=== PATIENT | male | born 1970 | race Caucasian/White ===

== ENCOUNTER 2021-01-11 06:44 | Outpatient (CLI) | payer OTHER, SELFPAY ==
[2021-01-11 07:18] VITALS: BMI 30.8
--- NOTE | 2021-01-11 07:19 | ECG_ITS ---
[facility] Test Date: 2021-01-11 Pat Name: Norman Newell Department: Room: Gender: Male [employer]: : 1970 Requested By: Austin Schaeffer Order Number: [id number] Jatin MD: Austin Schaeffer M.D. Interpretive Statements NAME OF STUDY: LEXISCAN SESTAMIBI STRESS TEST INDICATION: [Chest Pain] Procedure: At the baseline, the blood pressure was 122/81mmHg with a heart rate of 72 bpm. The electrocardiogram showed normal sinus rhythm, normal axis with normal ST and T's. The Lexiscan was infused over a period of 20 seconds. A total of 0.4 mg of Lexiscan was infused. The stress phase was continued for a total of 5 minutes. Heart rate was at the end of stress phase was 86 bpm and a blood pressure of 114/85 mmHg. The EKG at the peak infusion revealed since normal sinus rhythm with no significant ST-T wave changes. Sestamibi was injected 20 seconds after the Lexiscan infusion. Blood pressure at the end of recovery phase was 127/91mmHg with a heart rate of 85 bpm. Conclusion: 1. Normal EKG response to Lexiscan infusion 2. No Lexiscan induced chest pain or cardiac arrhythmia. 3. Normal blood pressure and heart rate response. 4. Sestamibi/sestamibi perfusion scan pending; see separate report. Electronically Signed On 01-11-2021 15:29:54 CDT by Austin Schaeffer M.D. [id number]
--- NOTE | 2021-01-11 07:20 | NMCV_ITS ---
NM wiht perf SPECT r/s* [id number] Reece Norman Age: 50 Gender: M : 1970 Exam Date: 01/11/2021 08:01 Ordering Phys: Austin Schaeffer M.D ([email or web address]) Technologist: YNES Rodriguez Exam Location: [facility] Indications: CHEST PAIN STRESS TEST [facility] IMAGE PROTOCOL Rest/Stress 1 Lexiscan Day Radiopharmaceutical Dose (mCi) Administration Site Administered by Rest: Tc-99m 10.9 IV YNES Rodriguez Sestamibi Stress:Tc-99m 32.6 IV YNES Seals Sestamibi Rest: 11-Jan-2021 60 Discovery 630 Stress: 11-Jan-2021 30 Discovery 630 0.4mg Lexiscan. Images obtained in supine and prone position. SPECT RESULTS Technical Quality: Excellent Raw Data Analysis: Normal Image Corrections: No attenuation or motion correction applied Summed Stress Score: 6 Summed Rest Score: 0 Summed Difference Score: 6 PERFUSION FINDINGS There is a moderate sized reversible perfusion defect in the inferior wall. This is consistent with ischemia FUNCTIONAL RESULTS (calculated via Gated SPECT) Stress Image LV EF (%): 64 Stress EDV (mL):127 TID: 0.93 Stress ESV (mL):46 FUNCTIONAL FINDINGS: There is normal left ventricular systolic function. IMPRESSIONS 1. Abnormal myocardial perfusion imaging with ischemia of the inferior wall 2. LV systolic function is normal Austin Schaeffer MD (Electronically Signed) Final Date: 11 January 2021 13:47 S
[2021-01-11] MEDS: regadenoson 0.4 Mg/5 ml Syringe IVP (08:40)
[2021-01-11 09:22] VITALS: BP 121/75; PULSE 63
== END 2021-01-11 06:45 | disposition home or self-care (01) ==
LOC: CDL 06:46
PROVIDERS: PCP Family Medicine; Visit Provider Internal Medicine
DX: R07.9 Chest pain, unspecified (principal)
CPT/HCPCS: 78452; 93017; A9500; J2785

== ENCOUNTER → 2021-01-27 10:45 | Outpatient (BNVA) | payer OTHER, SELFPAY | PROVIDERS: Referring Provider Internal Medicine; Visit Provider Internal Medicine | DX: I25.10 Atherosclerotic heart disease of native coronary artery without angina pectoris (principal); Z01.818 Encounter for other preprocedural examination; R07.9 Chest pain, unspecified; R94.39 Abnormal result of other cardiovascular function study; Z20.822 Contact with and (suspected) exposure to COVID-19 | CPT/HCPCS: 80048; 85025; 85610; 87635 ==

== ENCOUNTER 2021-02-01 06:47 | Day surgery (SDC) | payer OTHER, SELFPAY ==
[2021-02-01] VITALS (32 sets, daily range): BP systolic 102–155; BP diastolic 65–98; PULSE 64–98; RESP 12–22; TEMP 37.1; O2SAT 94–100; BMI 33.2
--- NOTE | 2021-02-01 07:30 | XACV_ITS ---
Exam Room: 1 Ht: 175 cm Wt: 102 kg BSA: 2.26 m2 Gender: Male : 1970 Any Known Allergies: No known allergies Exam Priority: Routine Procedure(s): Procedure Description: Diagnostic procedure Procedure Description: Left Heart Catheterization Procedure Description: Left ventriculography Procedure Description: Miscellaneous Procedure Description: Perclose Procedure Description: Coronary Angiography Diagnostic Cath Status: Elective Diagnostic Findings * Left Anterior Descending has mild luminal irregularities. LAD supplies collaterals to RCA.. * Circumflex has minor luminal irregularities. Circumflex supplies collaterals to PLV branch.. * Proximal Right Coronary Artery: total occlusion, DIANE: 0 flow. 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 * INDICATION: Chest pain/ abnormal stress test. * Left Main has no disease. * Coronary angiography shows right dominance. Conclusions 1. There is total occlusion coronary artery disease with one vessel disease. 2. Normal left ventricular systolic function. Ejection fraction of 50%. Recommendations * Aggressive risk factor modification. * Outpatient follow-up with cardiology in 4 weeks. Interventional RX Recommendation: medical therapy and/or counseling Diagnostic RX Recommendation: medical therapy and/or counseling Ventriculography Ejection Fraction: 50.0 % Pressures Phase:Rest AO : 139 / 64 ( 71 ) @ 8:29:00 AM 158 / 66 ( 76 ) @ 8:31:00 AM 98 / 72 ( 84 ) @ 8:35:00 AM 110 / 11 ( 42 ) @ 8:41:00 AM LV : 116 / -4 / 12 @ 8:40:00 AM 119 / 0 / 14 @ 8:41:00 AM Clinical Evaluation EBL: 5mL-10mL Procedural Details Procedure Consent Obtained. Current Diagnosis : Chest Pain. Pre-Procedure Time Out. Identified patient by full name and date of as verbalized by the patient/guarantor. Does the consent match the physician's order: Yes. Accurate & Complete Informed Consent: Yes. Inpatient/Outpatient History & Physical on Chart: Yes. If H&P is completed, is and addenduem needed: No; If yes, is the addendum complete: N/A. Visualize and Verify Site with Patient/Guarantor: N/A. Relevant Radiology Images available: Yes. Pre-op teaching completed and patient verbalized understanding. The risks, benefits, and alternatives of sedation and/or procedure were discussed by physician. The patient agrees to continue. Procedure started. [facility] Clinical Fraility Score: 3: Managing Well. 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 Chest Pain Symptom Assessment: Typical Angina Symptoms. Correct patient, site and procedure confirmed by cath team. Current diagnosis: Chest Pain. PERRLA. 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 Lungs clear x 5 lobes. IV Site on Arrival: 18 gauge in the left anticubital. IV Fluids: 0.9% NaCl at KVO. 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 Pre Procedural Pulses: bilateral dorsalis pedis was 1+. Pre Procedural Pulses: bilateral posterior tibial was 2+. Pre Procedural Pulses: bilateral radial was 3+. Oxygen started at 2liters/min via nasal canula. bilateral groins was prepped with chloroprep then draped in the usual sterile fashion. Physician notified. Baseline sample Acquired. HR: 0 BPM. Physician arrived. Carlos Eduardo Santos scrubbing and Mary Perkins circulating. Physician scrubbed in. Immediate Pre-Procedure Time Out. Correct Patient: Yes; Correct Procedure: Yes; Correct Site: Yes; Correct Patient Position: Yes; Correct Supplies: Yes; Dried Flammable Prep: Yes; Blood Products Available: N/A;. Lidocaine 1% infiltrated to the right groin. Arterial access obtained with micropuncture set. A 5 [place] JL4 catheter in over wire. Multiple views taken of left coronary artery. Catheter removed over the standard wire. A 5 [place] JR4 catheter in over wire. Multiple views taken of right coronary artery. Physician review of cine films. Catheter removed over the standard wire. A 5 [place] Angled Pig catheter in over wire. EDP Sample taken: LV 116/-5,12; HR: 65 BPM; SpO2: 99%. LV gram performed in URBINA @ 10 mL/second for a total of 30 mL. EDP Sample taken: LV 119/0,14; HR: 67 BPM; SpO2: 99%. Pullback taken: LV Off; AO Off; Mean: , Peak to Peak: , SEP: ; HR: 67 BPM; SpO2: 99%. Catheter removed over the standard wire. A Right femoral angiogram was performed to determine safe placement of closure device. Perclose placed without complications. No signs or symptoms of hematoma noted. Sterile dressing applied per usual sterile fashion. A Perclose (Quickshift) was successful obtaining hemostatsis at the Right Femoral artery insertion site. Post Procedure: Pulses reassessed and unchanged. PERRLA. 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 No VTE prophylaxis required. Medication's Wasted: Heparin = 1000 units. Medication's Wasted: Other = Fentanyl 50 mg. Medication's Wasted: Lidocaine 1% = 10 mL. Total IV fluids: 39 mL. Contrast type used: Omnipaque 300 mgI/mL, 500 mL bottle. Complications: None. Estimated blood loss: 5mL-10mL. Procedure completed. Patient transferred by bed to 1st floor. Vital chart was stopped. Access Site Site: Right Femoral artery Sheath Size: 6 Fr Hemostasis Method: Perclose (Quickshift) Hemostasis Success: Successful Procedure Medications Start: 9:20 AM Stop: 9:20 AM Medication: Versed Amount: 1 mg Route: I.V. Start: 9:20 AM Stop: 9:20 AM Medication: Fentanyl Amount: 50 mcg Route: I.V. Start: 9:24 AM Stop: 9:24 AM Medication: Versed Amount: 1 mg Route: I.V. I, the attending physician, have reviewed and verified all procedure medications. Yes, all medications given per verbal order History/Risk Factors Hypertension: Yes Dyslipidemia: No Peripheral Arterial Disease (PAD): No Myocardial Infarction (NE): No Obesity: No Renal Disease: No Tobacco Use: Current/Recent(w/in 1 year) Prior Interventions PCI: No CABG: No Valve Surgery: No Report Signatures Finalized by Austin Schaeffer MD on 02/15/2021 06:29 PM
[2021-02-01] MEDS: diphenhydrAMINE 50 mg Capsule PO (08:25)
--- NOTE | 2021-02-01 08:46 | W.PM.OPSFHP ---
Same Day Surgery H&P Indication for Procedure/HPI DATE OF PROCEDURE: February 01, 2021 CHIEF COMPLAINT/INDICATIONFOR SURGICAL PROCEDURE: Chest pain/abnormal stress test PREOP DIAGNOSIS: Chest pain/abnormal stress test PLANNED PROCEDRUE: Operation Date: 02/01/21 08:30 Proposed Procedures p left Cardiac Catheterization 40657 [id number](Left) - Austin Schaeffer M.D Possible percutaneous coronary intervention 50 year old man with PMH of CAD, hyertension, who has presented with complaints of chest pain that is exertional. His main symptom is dyspnea on exertion. These are worsening. Patient underwent nuclear stress test that showed inferior wall ischemia. ROS CONSTITUTIONAL: No fever or chills. [] EYES: No blurring of vision or other visual disturbances lately. [] CARDIOVASCULAR:Chest pain [] RESPIRATORY: Shortness of breath. [] GASTROINTESTINAL: No hematemesis or melena. [] GENITOURINARY: No dysuria or hematuria. [] NEURO: No transient ischemic attacks or amaurosis. [] PSYCHIATRIC: No history of psychosis or major depression. [] HEMATOLOGIC: No bleeding disorders or significant anemia. [] MUSCULOSKELETAL: No recent joint pain or swelling. [] Medications/Allergies* Home Medications Medication Instructions Recorded Confirmed Type aspirin 81 mg tablet,delayed 81 mg PO DAILY 12/01/20 02/01/21 History release clopidogrel 75 mg tablet 75 mg PO DAILY 12/01/20 02/01/21 History isosorbide mononitrate 30 mg 30 mg PO DAILY 12/01/20 02/01/21 History tablet,extended release 24 hr metoprolol tartrate 50 mg tablet 25 mg PO DAILY tab 12/01/20 02/01/21 History nitroglycerin 0.4 mg sublingual 0.4 mg SUBLINGUAL Q5M PRN 12/01/20 02/01/21 History tablet omeprazole 40 mg capsule,delayed 40 mg PO DAILY 12/01/20 02/01/21 History release Allergies/Adverse Reactions Allergy/AdvReac Type Severity Reaction Status Date / Time No Known Allergies Allergy Unverified 01/11/21 07:21 Current Medications: Generic Name Dose Route Start Last Admin Trade Name Freq PRN Reason Stop Dose Admin Sodium Chloride 1,000 mls @ 50 mls/hr 02/01/21 07:30 02/01/21 08:25 Sodium Chloride 0.9% IV 02/02/21 03:29 Not Given .Q20H ONE Pertinent History/Comorbid Conditions* Medical History (Updated 12/05/20 @ 22:26 by Austin Schaeffer M.D) Coronary artery disease GERD (gastroesophageal reflux disease) Hypertension Family History (Updated 12/05/20 @ 22:21 by Austin Schaeffer M.D) Hypertension Social History Smoking and tobacco status: current every day smoker cigarettes Packs smoked per day: 1 Alcohol intake: never Pertinent Exam Findings alert, oriented x 3, clear to auscultation bilaterally and regular rate & rhythm Conscious Sedation Assessment PATIENT ASSESSED PRIOR TO SEDATION, WITH NO CHANGE NOTED: Yes AIRWAY EVAL/ANESTHESIA PLAN: normal airway, see other exam findings, ASA III, Monitored Anesthesia, Local Anesthesia, Risks, benefits & alternatives of sedation and/or procedure discussed and Patient agrees to continue as planned Recommendations Surgery/Procedure today (Left heart cath +/-Percutaneous coronary intervention) Coding Level of Care Code Acute Insurance Account Representative for Otilio Callahan
--- NOTE | 2021-02-01 16:17 | PC.NURSE ---
called employee pharmacy of med to bed
--- NOTE | 2021-02-01 16:49 | PC.NURSE ---
Ambulation Pt got up and walked down hallways. Pt denies any unusual pain, pressure or burning sensation. Pt had minimal sharp pain on right inner thigh groin but did not last long after ambulation per patient report. No hematoma, swelling or bleeding noted during and after ambulation. Pedal pulses are palpable and doppled. Pt tolerated well the activity.
--- NOTE | 2021-02-01 17:31 | PC.NURSE ---
Discharge Note Patient discharged to home via ambulation per his request accompanied by friend. Discharge instructions reviewed with patient and/or product support sales representative. Mobile pharmacy medications and/or prescriptions provided. Belongings/home medications returned. Post angiogram home care instructed and discussed to pt. Discharge packet provided to pt.
== END 2021-02-01 17:26 | disposition home or self-care (01) ==
LOC: CCL 06:53 → CSU 10:11
PROVIDERS: Visit Provider Internal Medicine
DX: I25.10 Atherosclerotic heart disease of native coronary artery without angina pectoris (principal); I25.82 Chronic total occlusion of coronary artery; R94.39 Abnormal result of other cardiovascular function study; R07.9 Chest pain, unspecified; I10 Essential (primary) hypertension; Z79.82 Long term (current) use of aspirin; K21.9 Gastro-esophageal reflux disease without esophagitis; F17.210 Nicotine dependence, cigarettes, uncomplicated
CPT/HCPCS: 36415; 93452; C1760; C1769; C1887; C1894; J1644; J2250; J3010; J3490; J7030; Q0163; Q9967

== ENCOUNTER → 2021-02-09 10:43 | Outpatient (BNVA) | payer OTHER, SELFPAY | PROVIDERS: PCP Nurse Practitioner; Visit Provider Nurse Practitioner Family | DX: Z09 Encounter for follow-up examination after completed treatment for conditions other than malignant neoplasm (principal); I25.119 Atherosclerotic heart disease of native coronary artery with unspecified angina pectoris; I10 Essential (primary) hypertension | CPT/HCPCS: 80048 ==

== ENCOUNTER → 2021-12-12 12:49 | Outpatient (BNVA) | payer OTHER, SELFPAY | PROVIDERS: PCP Nurse Practitioner; Visit Provider Internal Medicine | DX: I25.119 Atherosclerotic heart disease of native coronary artery with unspecified angina pectoris (principal); I10 Essential (primary) hypertension; F17.210 Nicotine dependence, cigarettes, uncomplicated | CPT/HCPCS: 99214 ==

== ENCOUNTER → 2022-12-11 12:39 | Outpatient (BNVA) | payer OTHER, SELFPAY | PROVIDERS: PCP Nurse Practitioner; Visit Provider Internal Medicine | DX: I25.119 Atherosclerotic heart disease of native coronary artery with unspecified angina pectoris (principal); I10 Essential (primary) hypertension; Z72.0 Tobacco use | CPT/HCPCS: 99214 ==

== ENCOUNTER → 2023-11-22 09:56 | Outpatient (BNVA) | payer OTHER, SELFPAY | PROVIDERS: PCP Nurse Practitioner; Visit Provider Nurse Practitioner Family | DX: I25.119 Atherosclerotic heart disease of native coronary artery with unspecified angina pectoris (principal); I10 Essential (primary) hypertension; F17.210 Nicotine dependence, cigarettes, uncomplicated | CPT/HCPCS: 99213 ==

== ENCOUNTER → 2024-11-20 12:54 | Outpatient (BNVA) | payer OTHER, SELFPAY | PROVIDERS: PCP Nurse Practitioner; Visit Provider Internal Medicine | DX: I25.119 Atherosclerotic heart disease of native coronary artery with unspecified angina pectoris (principal); I10 Essential (primary) hypertension; Z79.02 Long term (current) use of antithrombotics/antiplatelets; Z72.0 Tobacco use | CPT/HCPCS: 99213 ==